=== PATIENT | female | born 1965 | race Caucasian/White ===

== ENCOUNTER 2019-03-31 08:04 | Emergency (ER) | payer OTHER ==
[2019-03-31] MEDS ORDERED: ASPIRIN CHEW 81 MG TABLET PO STA (08:17)
[2019-03-31 08:25] LABS: BASOPHILS % (AUTO) 0.3 %; HGB - HEMOGLOBIN 11.7 g/dL (12.0-16.0); LYMPHOCYTES % (AUTO) 8.4 %; MEAN CORPUSCULAR HEMOGLOBIN 29.3 pg (27.0-31.0); MEAN CORPUSCULAR HGB CONC 31.5 g/dL (32.0-36.0); MEAN PLATELET VOLUME 9.3 fL (7.9-10.8); MONOCYTES % (AUTO) 12.7 %; NEUTROPHILS % (AUTO) 77.8 %; PLT - PLATELET COUNT 264 10^3/uL (130-450); RED CELL DISTRIBUTION WIDTH 14.6 % (12.0-15.0); WHITE BLOOD COUNT 17.3 x10^3/uL (4.8-10.8)
[2019-03-31] MEDS ORDERED: HEPARIN 25000UNITS/500ML (D5W) 25,000 UNIT/500 ML BAG IV ONE (08:25)
[2019-03-31] MEDS ORDERED: SODIUM CHLORIDE 0.9% 1,000 ML IV ONE ×2 (08:28→09:33)
[2019-03-31] MEDS ORDERED: HEPARIN 25000UNITS/500ML (D5W) 25,000 UNIT/500 ML BAG IV STA (08:28)
--- NOTE | 2019-03-31 08:28 | ED Physician Documentation ---
History of Present Illness - Stated complaint Stated Complaint: SOA - Chief complaint Chief Complaint: Cardiac - Additonal information Additional information: This is a 53-year-old female with a history of hypothyroidism and tobacco use who presents with throat discomfort and chest discomfort. Patient symptoms began last Thursday the , she states that she had some discomfort in her throat, and the symptoms got to the point where she actually went in and saw urgent care/walk-in clinic in [facility], she was diagnosed with potential reflux or indigestion and "throat spasm" and was started on cyclobenzaprine and omeprazole, which did not help. Over the recent days she has had more discomfort and she feels her when she takes of breath and that she has a pressure-like pain in her mid sternum. She is never had a heart attack, never had a catheterization or stress test. She denies any personal history of ME or dysrhythmia. She is not diabetic, denies history of hypertension. She is not on any blood thinners. He has had nausea and reduced appeitite. Review of Systems Constitutional: denies: Fever Nose: denies: Rhinorrhea / runny nose Throat: reports: Sore throat Cardiac: reports: Chest pain / pressure Respiratory: denies: Dyspnea GI: reports: Nausea : denies: Dysuria Skin: denies: Rash Neurologic: reports: Generalized weakness Immunocompromised: denies: Immunocompromised PD PAST MEDICAL HISTORY - Past Medical History Endocrine/Autoimmune: HyPOthyroidism - Past Surgical History /[employer]: section - Present Medications Home Medications: Ambulatory Orders Medication Instructions Recorded Confirmed Cyclobenzaprine [Flexeril] 10 mg PO TID PRN 03/31/19 03/31/19 Levothyroxine [Synthroid] 100 mcg PO QDAC 03/31/19 03/31/19 Omeprazole 20 mg PO BID 03/31/19 03/31/19 - Allergies Allergies/Adverse Reactions: Allergies Allergy/AdvReac Type Severity Reaction Status Date / Time No Known Drug Allergies Allergy Verified 03/31/19 08:17 - Living Situation Living Arrangement: reports: At home - Social History Does the pt smoke?: Yes Does the pt drink ETOH?: Yes ETOH Use: Beer PD ED PE NORMAL - General General: Alert and oriented X 3, Other (Somewhat pale appearing female in no acute distress) - HEENT HEENT: Atraumatic, Moist mucous membranes - Neck Neck: Supple, no meningeal sign - Cardiac Cardiac: RRR - Respiratory Respiratory: No respiratory distress, Clear bilaterally - Abdomen Abdomen: Soft, Non tender, Non distended - Extremities Extremities: No deformity - Neuro Neuro: Alert and oriented X 3, [place] 2-12 intact, No motor deficit, No sensory deficit, Normal speech - Psych Psych: Normal mood, Normal affect Results - Vitals Vitals: Vital Signs - 24 hr 03/31/19 03/31/19 03/31/19 08:07 08:23 08:25 Temperature 36.7 C Heart Rate 62 57 L 59 L Respiratory 18 21 26 H Rate Blood Pressure 93/65 76/60 L 78/52 L O2 Saturation 100 100 100 03/31/19 03/31/19 03/31/19 08:30 08:48 09:05 Temperature Heart Rate 58 L 63 51 L Respiratory 26 H 97 H 25 H Rate Blood Pressure 80/52 L 74/57 L 63/48 L O2 Saturation 100 21 L 95 03/31/19 03/31/19 03/31/19 09:25 09:36 09:45 Temperature Heart Rate 71 71 71 Respiratory 28 H 24 11 L Rate Blood Pressure 94/55 L 86/65 L 89/72 L O2 Saturation 96 100 100 Oxygen O2 Source Nasal cannula - EKG (time done) 8:12 Other comments: Other comments - Labs Labs: Laboratory Tests 03/31/19 03/31/19 03/31/19 08:20 08:20 08:20 WBC 17.3 H RBC 4.00 L Hgb 11.7 L Hct 37.2 MCV 93.0 MCH 29.3 MCHC 31.5 L RDW 14.6 Plt Count 264 MPV 9.3 Neut # (Auto) Not Reportable Lymph # (Auto) Not Reportable [place] # (Auto) Not Reportable Eos # (Auto) Not Reportable Baso # (Auto) Not Reportable Absolute Nucleated RBC Not Reportable Total Counted 100 Band Neuts % (Manual) 6 Reactive Lymphs % (Man) 2 Abnorm Lymph % (Manual) 0 Nucleated RBC % Not Reportable Neutrophils # (Manual) 14.4 H Lymphocytes # (Manual) 1.9 Monocytes # (Manual) 1.0 Eosinophils # (Manual) 0.0 Basophils # (Manual) 0.0 Differential Comment MANUAL DIFFERENTIAL RBC Morph Micro Appear 2+ ANISOCYTOSIS Sodium 131 L Potassium 4.9 Chloride 95 L Carbon Dioxide 21 Anion Gap 15.0 H BUN 33 H Creatinine 1.4 H Estimated GFR (MDRD) 39 L Glucose 130 H Calcium 9.2 Total Bilirubin 1.2 H AST 169 H ALT 60 Alkaline Phosphatase 74 Troponin I High Sens 47402.9 H* Total Protein 8.8 H Albumin 4.2 Globulin 4.6 H Albumin/Globulin Ratio 0.9 L Lipase 30 - Rads (name of study) CXR Radiology: Other (Mild bibasilar atelectasis, otherwise no acute abnormalities) CXR post cordis Radiology: Other (Pacer wire seen extending into ventricle, no other acute change) Procedures - Transvenous pacer Transvenous pacer preparation: Consent obtained Transvenous pacer site: Right IJ Transvenous pacer placement: Introducer sheath (5 F cordis), Advanced under EKG guide, Rate set at (70), Milliamps set at (1), Capture obtained Transvenous pacer aftercare: Dressing applied, CXR confirmed placement, No complications, Patient tolerated well, Other (Secured with tegaderm and reinforced with tape. We did not have a sterile sheath available to protect the distal pacing wire at its insertion point into the cordis, so this was secured in place with the tegaderm.) PD MEDICAL DECISION MAKING - ED course Complexity details: considered differential (ACS, STEMI, dysrhythmia, HF, effusion, PNA) ED course: Patient arrives with complaint of throat pain and chest pain, EKG done within a few minutes of patient being roomed, and shows an obvious inferior STEMI. There appeared to be a Mob[place] 1 block initially as well, suggestive of RCA lesion. STEMI alert was immediately called, and patient was given aspirin as well as heparin. I spoke with Dr. Chase in the [facility] emergency department who accepted patient. She is well-appearing at this time, her heart rate is normal, her blood pressure has a borderline low systolic 90, but her mean arterial pressure is normal. She is given a bolus of fluids due to likely R heart involvement and borderline blood pressure. As we were preparing pt for transfer, patient on the monitor became bradycardic, and rhythm strip repeat EKG showed a complete heart block. Despite fluids and zofran she remained hypotensive, nauseated. Atropin 0.5mg was given x 2 with no response, she appears unstable for transfer in her current state, so after obtaining verbal consent cordis was placed in the RIJ and TV pacing performed. Dr. Ernst graciously assisted with setting up the pacemaker. Pt had excellent capture, we set rate to 70 and output to 1. Her symptoms improved, and BP improved as well to 90s/60s. Her MAP is now stable and she appears much better. CXR confirms placement. She was transferred via [facility] and the [facility] ED was updated on pt's condition, as well as her labs showing a HS troponin of 19,000. She also has a leukocytosis, which may be 2/2 demargination as patient is afebrile. She remained stable at the time of transfer and she is in agreement with the plan. Departure - Departure Disposition: 02 Transfer Acute Care Hosp Clinical Impression: Third degree heart block, Cardiogenic shock STEMI (ST elevation myocardial infarction) Qualifiers: Involved coronary artery: unspecified coronary artery Qualified Code(s): I21.3 - ST elevation (STEMI) myocardial infarction of unspecified site Condition: Stable Discharge Date/Time: 03/31/19 10:01
[2019-03-31] MEDS ORDERED: ONDANSETRON 4 MG/2 ML VIAL IVP STA ×2 (08:33→09:34)
[2019-03-31 08:34] LABS: ABNORMAL LYMPHS % (MANUAL) 0 %
[2019-03-31 08:37] LABS: ALBUMIN 4.2 g/dL (3.2-5.5); ALBUMIN/GLOBULIN RATIO 0.9 (1.0-2.2); BILIRUBIN,TOTAL 1.2 mg/dL (0.2-1.0); CALCIUM 9.2 mg/dL (8.5-10.3); CREATININE 1.4 mg/dL (0.4-1.0); TOTAL PROTEIN 8.8 g/dL (6.7-8.2)
[2019-03-31] MEDS ORDERED: ATROPINE ABBOJECT 1 MG/10 ML SYRINGE IVP ONE (08:46)
[2019-03-31 08:50] LABS: BAND NEUTROPHILS % (MANUAL) 6 %; LYMPHOCYTES # (MANUAL) 1.9 10^3/uL (1.5-3.5); LYMPHOCYTES % (MANUAL) 9 %; RBC MORPHOLOGY (MULTIPLE) 2+ ANISOCYTOSIS (NORMAL)
[2019-03-31 08:51] LABS: DIFFERENTIAL COMMENT MANUAL DIFFERENTIAL
[2019-03-31] MEDS ORDERED: ONDANSETRON 4 MG/2 ML VIAL ONE (08:52)
--- NOTE | 2019-03-31 08:55 | XRAY Report ---
Reason: Chest Pain Procedure Date: 03/31/2019 Accession Number: [id number] / [id number] Procedure: XR - Chest 1 View X-Ray CPT Code: 41705 Final Report FULL RESULT: EXAM: CHEST RADIOGRAPHY EXAM DATE: 03/31/2019 08:25 AM. CLINICAL HISTORY: Chest Pain. COMPARISON: None. TECHNIQUE: 1 view. FINDINGS: Lungs/Pleura: Mild bibasilar linear/streaky opacities likely reflect atelectasis. Otherwise clear lungs. No pleural effusion or pneumothorax. Mediastinum: Within exam limitations, the cardiomediastinal contour is normal. Other: None. IMPRESSION: 1. Mild bibasilar opacities most likely reflect atelectasis. Otherwise clear lungs. RADIA
[2019-03-31] MEDS ORDERED: EPINEPHrine 4 MG in DEXTROSE 5% 246 ML IVP STA (08:56)
[2019-03-31] MEDS ORDERED: ATROPINE 0.4 MG/ML VIAL IVP ONE (09:33)
[2019-03-31] MEDS ORDERED: ATROPINE 8 MG/20 ML VIAL IVP ONE (09:34)
--- NOTE | 2019-03-31 09:51 | XRAY Report ---
Reason: Cordis and pacemaker placement Procedure Date: 03/31/2019 Accession Number: [id number] / [id number] Procedure: XR - Chest 1 View X-Ray CPT Code: 60986 Final Report FULL RESULT: EXAM: CHEST RADIOGRAPHY EXAM DATE: 03/31/2019 09:41 AM. CLINICAL HISTORY: Cordis/pacemaker placement. COMPARISON: CHEST 1 VIEW 03/31/2019 8:09 AM. TECHNIQUE: 1 view. FINDINGS: Lungs/Pleura: Stable bibasilar atelectasis. No acute consolidations or pulmonary edema detected. Mediastinum: Within exam limitations, the cardiomediastinal contour is normal. Other: Defibrillator pad and quality assurance monitor final devices overlie the chest. IMPRESSION: No acute consolidations identified. RADIA
[2019-03-31 10:15] VITALS: BP 89/72
--- NOTE | 2019-03-31 11:04 | CARDIAC PROCEDURE NOTE ---
DATE OF SERVICE: 03/31/2019 Physician: Abigail Ernst MD The patient was in the emergency room being treated for an acute STEMI inferior TX. Dr. Piter Millan was inserting a central venous access line via a jugular approach and I was requested to help assist with temporary transvenous pacemaker initiation and settings. Her EKG showed inferior ST elevations. She had complete heart block noted on telemetry with a ventricular rate of 50 and blood pressure was 70-80 systolic. The patient was supine, undergoing CVP placement. After central access was achieved, Dr. Millan floated in the temporary transvenous pacemaker. I managed the portable external portion of the pacemaker. The settings on the pacemaker box were turned on using battery power. It was initially set at an asynchronous mode, heart rate of 100, and maximal output. When position showed 100% ventricular capture on telemetry at a rate of 100, the output was decreased slowly from maximum, and the threshold was determined: it still had capture at 1 milliamp, no capture at 0.5 milliamps. Therefore, the output was set at 2 milliamps. Heart rate setting was then decreased from 100 down to 70. There was continuous ventricular capture with this and blood pressure improved to 96 systolic. The site at the neck was sterilly taped down by Dr. Millan. Chest x-ray was ordered to check for positioning of the CVP line and the transvenous pacer, and is pending. CRITICAL CARE TIME SPENT: 30 minutes TD: 03/31/2019 10:09 JOHANNA
== END 2019-03-31 10:01 | disposition short-term general hospital (02) ==
LOC: ED 08:04
DX: I21.19 ST elevation (STEMI) myocardial infarction involving other coronary artery of inferior wall (principal); I44.2 Atrioventricular block, complete; R57.0 Cardiogenic shock; F17.200 Nicotine dependence, unspecified, uncomplicated; D72.829 Elevated white blood cell count, unspecified; E03.9 Hypothyroidism, unspecified
CPT/HCPCS: 33210; 36415; 71045; 80053; 83690; 84484; 85025; 96361; 96374; 96375; 99284; 99285; A9270; 93005